=== PATIENT | male | born 1995 | race Caucasian/White ===

== ENCOUNTER 2019-06-23 04:25 | Emergency (ER) | payer SELFPAY ==
[~2019-06-23] VITALS: Ht 172.7 cm; Wt 59.0 kg
[2019-06-23 04:29] VITALS: Ht 172.7 cm; Wt 59.0 kg
[2019-06-23 04:55] VITALS: BP 125/69
== END 2019-06-23 04:55 | disposition home or self-care (01) ==
LOC: ED 04:25
DX: H10.33 Unspecified acute conjunctivitis, bilateral (principal)